=== PATIENT | female | born 1945 | race Caucasian/White ===

== ENCOUNTER → 2016-08-01 | Outpatient (CLI) | payer OTHER | END | disposition home or self-care (01) | LOC: PCVCCLINIC 15:48 | PROVIDERS: ATTEND Internal Medicine Cardiovascular Disease | DX: E78.5 Hyperlipidemia, unspecified (principal); R01.1 Cardiac murmur, unspecified; I34.0 Nonrheumatic mitral (valve) insufficiency; I07.1 Rheumatic tricuspid insufficiency; R09.89 Other specified symptoms and signs involving the circulatory and respiratory systems; I45.2 Bifascicular block; Z82.49 Family history of ischemic heart disease and other diseases of the circulatory system; Z72.0 Tobacco use | CPT/HCPCS: 80061; 93005; G0463 ==

== ENCOUNTER → 2016-10-26 | Outpatient (CLI) | payer OTHER | END | disposition home or self-care (01) | LOC: PCVCIMAG 09:15 | PROVIDERS: ATTEND Internal Medicine Cardiovascular Disease | DX: I65.23 Occlusion and stenosis of bilateral carotid arteries (principal); R01.1 Cardiac murmur, unspecified; E78.5 Hyperlipidemia, unspecified; Z72.0 Tobacco use | CPT/HCPCS: 93325; 93351; 93880 ==

== ENCOUNTER → 2018-05-14 | Outpatient (CLI) | payer OTHER ==
--- NOTE | 2018-05-14 14:41 | PCVCIMAG ---
APPROVED REPORT Study performed: 05/14/2018 13:12:51 EXAM: Comprehensive 2D, Doppler, and color-flow Echocardiogram Patient Location: Echo lab Status: routine BSA: 1.67 HR: 61 bpmBP: 124/76 mmHg Rhythm: bifascicular block Other Information Study Quality: Adequate Indications Abnormal ECG Murmur dilated ascending aorta 2D Dimensions IVSd: 9.75 (7-11mm) LVDd: 38.31 mm PWd: 8.71 (7-11mm)Ascending Ao: 40.67 (22-36mm) LVDs: 29.73 (25-40mm) Left Atrium: 31.07 (27-40mm) Aortic Root: 33.92 mm LV Single Plane 4CH: 64.84 % LV Single Plane 2CH: 68.65 % Biplane EF: 67.3 % Volumes Left Atrial Volume (Systole) Single Plane 4CH: 58.40 mLSingle Plane 2CH: 51.69 mL LA ESV Index: 34.00 mL/m2 Aortic Valve AoV Peak Dieter.: 1.65 m/s AO Peak Gr.: 10.82 mmHgLVOT Max P.05 mmHg LVOT Max V: 1.33 m/s Mitral Valve E/A Ratio: 0.9 MV Decel. Time: 302.90 ms MV E Max Dieter.: 0.54 m/s MV A Dieter.: 0.59 m/s IVRT: 110.73 ms Pulmonary Valve PV Peak Dieter.: 0.88 m/sPV Peak Gr.: 3.07 mmHg Pulmonary Vein P Vein S: 0.28 m/sP Vein A: 0.40 m/s P Vein D: 0.42 m/sP Vein A Dur.: 124.6 msec P Vein S/D Ratio: 0.67 Tricuspid Valve TR Peak Dieter.: 2.35 m/s TR Peak Gr.: 22.13 mmHg TV Vmax: 0.53 m/s Left Ventricle The left ventricle is normal size. There is normal LV segmental wall motion. There is normal left ventricular wall thickness. Left ventricular systolic function is normal. The left ventricular ejection fraction is within the normal range. LVEF is 65%. Grade I - abnormal relaxation pattern. Right Ventricle The right ventricle is normal size. The right ventricular systolic function is normal. Atria The left atrium size is normal. The right atrium size is normal. Aortic Valve The aortic valve is normal in structure. No aortic regurgitation is present. There is no aortic valvular stenosis. Mitral Valve The mitral valve is normal in structure. Mild mitral regurgitation. No evidence of mitral valve stenosis. Tricuspid Valve The tricuspid valve is normal in structure. Mild tricuspid regurgitation with PAP of 29 mmHg. Pulmonic Valve The pulmonary valve is normal in structure. Trace pulmonic regurgitation. Great Vessels The aortic root is normal in size. The ascending aorta is mildly dilated to 4.1 cm. IVC is normal in size and collapses >50% with inspiration. Pericardium There is no pericardial effusion. There is no pleural effusion. <Conclusion> The left ventricle is normal size. LVEF is 65%. Grade I - abnormal relaxation pattern. The right ventricle is normal size. The left atrium size is normal. The aortic valve is normal in structure. Mild mitral regurgitation. Mild tricuspid regurgitation with PAP of 29 mmHg. The aortic root is normal in size. There is no pericardial effusion.
== END | disposition home or self-care (01) ==
LOC: PCVCIMAG 14:05
PROVIDERS: ATTEND Internal Medicine Cardiovascular Disease
DX: I08.1 Rheumatic disorders of both mitral and tricuspid valves (principal); R01.1 Cardiac murmur, unspecified; R94.31 Abnormal electrocardiogram [ECG] [EKG]; I77.819 Aortic ectasia, unspecified site
CPT/HCPCS: 93306

== ENCOUNTER → 2019-02-14 | Outpatient (CLI) | payer OTHER | END | disposition home or self-care (01) | LOC: PCVCCLINIC 14:00 | PROVIDERS: ATTEND Internal Medicine Cardiovascular Disease | DX: E78.5 Hyperlipidemia, unspecified (principal); E78.00 Pure hypercholesterolemia, unspecified; K74.3 Primary biliary cirrhosis; I34.0 Nonrheumatic mitral (valve) insufficiency; I45.2 Bifascicular block; R00.1 Bradycardia, unspecified; I65.23 Occlusion and stenosis of bilateral carotid arteries; I38 Endocarditis, valve unspecified; I71.2 Thoracic aortic aneurysm, without rupture; Z82.49 Family history of ischemic heart disease and other diseases of the circulatory system; Z87.891 Personal history of nicotine dependence; Z79.82 Long term (current) use of aspirin; Z79.899 Other long term (current) drug therapy | CPT/HCPCS: 36415; 80061; 93005; G0463 ==